=== PATIENT | male | born 1960 | race Two or more races ===

== ENCOUNTER 2019-07-30 19:41 | Emergency (ER) | payer MEDICAID, OTHER ==
[~2019-07-30] VITALS: Ht 170.2 cm; Wt 93.6 kg
[2019-07-30 22:27] LABS: Basophils # (auto) 0.1 uL; Basophils % (auto) 0.7 % (0.0-2.0); Eosinophils # (auto) 0.2 uL; Eosinophils % (auto) 1.9 % (0.0-7.0); Hematocrit 38.7 % (41.0-53.0); Hemoglobin 12.8 g/dL (13.5-17.5); Lymphocytes # (auto) 1.5 uL; Lymphocytes % (auto) 16.4 % (10.0-50.0); Mean Corpuscular Hemoglobin 27.6 pg (28.0-32.0); Mean Corpuscular Hgb Conc. 33.2 g/dL (32.0-36.0); Mean Corpuscular Volume 83.2 fL (80.0-100.0); Monocytes # (auto) 0.9 uL; Monocytes % (auto) 9.3 % (0.0-12.0); Neutrophils # (auto) 6.6 uL; Neutrophils % (auto) 71.7 % (37.0-80.0); Platelet Count (auto) 217 10^3/uL (140-450); Red Blood Cells 4.65 10^6/uL (4.5-5.90); Red Cell Distribution Width 14.1 % (11.8-14.3); White Blood Cell 9.2 10^3/uL (4.4-10.8)
[2019-07-30 22:47] LABS: Alanine Aminotransferase 18 U/L (16-61); Albumin 3.7 g/dL (3.4-5.0); Anion Gap 10 (5-15); Aspartate Aminotransferase 13 U/L (15-37); BUN/Creatinine Ratio 18.4; Blood Urea Nitrogen 16 mg/dL (7-18); Calcium 8.6 mg/dL (8.5-10.1); Carbon Dioxide 26 mmol/L (21-32); Chloride 102 mmol/L (98-107); GFR African American 117 mL/min; GFR Non-African American 96 mL/min; Glucose 142 mg/dL (74-106); Magnesium 2.2 mg/dL (1.6-2.6); Potassium 3.7 mmol/L (3.5-5.1); Sodium 138 mmol/L (136-145)
[2019-07-30 22:48] LABS: INR 0.98 (0.9-1.15)
[2019-07-30 22:52] LABS: Alkaline Phosphatase 89 U/L (45-117); Bilirubin, Total 0.3 mg/dL (0.2-1.0); Total Protein 8.4 g/dL (6.4-8.2)
[2019-07-30] MEDS ORDERED: cloNIDine HCL 0.1 MG TAB PO ONE (23:15)
[2019-07-31 06:14] VITALS: BP 134/85
== END 2019-07-31 06:02 | disposition home or self-care (01) ==
LOC: ER 19:45
DX: R07.2 Precordial pain (principal); E11.65 Type 2 diabetes mellitus with hyperglycemia; R53.1 Weakness; I10 Essential (primary) hypertension; I25.2 Old myocardial infarction; Z95.1 Presence of aortocoronary bypass graft
CPT/HCPCS: 36415; 71045; 80053; 82962; 83735; 83880; 84484; 85025; 85610; 85730; 93005; 94761

== ENCOUNTER 2020-10-29 15:17 | Emergency (ER) | payer MEDICAID ==
[~2020-10-29] VITALS: Ht 170.2 cm; Wt 99.8 kg
[2020-10-29 17:04] LABS: Basophils # (auto) 0 10 ^3/uL (0-0.2); Eosinophils # (auto) 0.1 10 ^3/uL (0-0.8); Hemoglobin 13.5 g/dL (13.5-17.5); Lymphocytes # (auto) 1.3 10 ^3/uL (0.4-5.4); Mean Corpuscular Hemoglobin 30.4 pg (28.0-32.0); Mean Corpuscular Hgb Conc. 34.6 g/dL (32.0-36.0); Monocytes # (auto) 0.7 10 ^3/uL (0-1.3)
[2020-10-29 17:07] LABS: Basophils % (auto) 0.3 % (0.0-2.0); Eosinophils % (auto) 1.1 % (0.0-7.0); Hematocrit 39.1 % (41.0-53.0); Lymphocytes % (auto) 17.5 % (10.0-50.0); Mean Corpuscular Volume 87.8 fL (80.0-100.0); Monocytes % (auto) 9.1 % (0.0-12.0); Neutrophils # (auto) 5.3 10 ^3/uL (1.6-8.6); Nucleated Red Blood Cells % 0.1 %; Platelet Count (auto) 443 10^3/uL (140-450); Red Blood Cells 4.45 10^6/uL (4.5-5.90); White Blood Cell 7.4 10^3/uL (4.4-10.8)
[2020-10-29 17:09] LABS: INR 1.06 (0.9-1.15); Partial Thromboplastin Time 25.8 sec (23.0-31.2)
[2020-10-29 17:11] LABS: Albumin 3.2 g/dL (3.4-5.0); BUN/Creatinine Ratio 12.8; Calcium 8.6 mg/dL (8.5-10.1); Magnesium 2.2 mg/dL (1.6-2.6); Potassium 3.8 mmol/L (3.5-5.1)
[2020-10-29 17:13] LABS: Bilirubin, Total 0.5 mg/dL (0.2-1.0)
[2020-10-29] MEDS ORDERED: metFORMIN HYDROCHLORIDE 500 MG TAB PO ONE (18:15)
[2020-10-29 21:13] VITALS: BP 161/93
== END 2020-10-30 00:52 | disposition home or self-care (01) ==
LOC: ER 15:19
DX: J15.9 Unspecified bacterial pneumonia (principal); R19.7 Diarrhea, unspecified; E11.9 Type 2 diabetes mellitus without complications; I10 Essential (primary) hypertension; Z20.828 Contact with and (suspected) exposure to other viral communicable diseases
CPT/HCPCS: 36415; 71046; 74018; 80053; 83605; 83690; 83735; 85025; 85610; 85730; 87426; 99284; C9803; U0003

== ENCOUNTER 2021-04-10 12:06 | Emergency (ER) | payer MEDICAID ==
[~2021-04-10] VITALS: Ht 170.2 cm; Wt 102.1 kg
[2021-04-10 12:07] VITALS: BP 151/91
[2021-04-10] MEDS ORDERED: MET25T PO (12:38)
[2021-04-10] MEDS ORDERED: PANT40T PO (12:38)
[2021-04-10] MEDS ORDERED: ATOR20TA50 PO (12:38)
== END 2021-04-10 13:05 | disposition home or self-care (01) ==
LOC: ER 12:06
DX: K21.9 Gastro-esophageal reflux disease without esophagitis (principal); I10 Essential (primary) hypertension; E11.9 Type 2 diabetes mellitus without complications; I25.2 Old myocardial infarction; Z76.0 Encounter for issue of repeat prescription; Z79.899 Other long term (current) drug therapy

== ENCOUNTER 2021-07-06 11:55 | Emergency (ER) | payer MEDICAID ==
[~2021-07-06] VITALS: Ht 170.2 cm; Wt 92.5 kg
[~2021-07-06 11:55] MED LIST: ATOR20TA50 PO; MET25T PO; PANT40T PO
[2021-07-06 14:35] VITALS: BP 109/48
== END 2021-07-06 14:42 | disposition home or self-care (01) ==
LOC: ER 11:55
DX: J20.9 Acute bronchitis, unspecified (principal); I10 Essential (primary) hypertension; E11.9 Type 2 diabetes mellitus without complications; K21.9 Gastro-esophageal reflux disease without esophagitis
CPT/HCPCS: 71046

== ENCOUNTER 2022-02-10 19:39 | Inpatient (IN) | payer MEDICARE, MEDICAID ==
[~2022-02-10] VITALS: Ht 170.2 cm; Wt 95.3 kg
[2022-02-10 22:15] LABS: Basophils # (auto) 0 10 ^3/uL (0-0.2); Basophils % (auto) 0.4 % (0.0-2.0); Eosinophils # (auto) 0.1 10 ^3/uL (0-0.8); Eosinophils % (auto) 1.3 % (0.0-7.0); Hematocrit 40.6 % (41.0-53.0); Lymphocytes # (auto) 1.6 10 ^3/uL (0.4-5.4); Lymphocytes % (auto) 25.5 % (10.0-50.0); Mean Corpuscular Hemoglobin 29.4 pg (28.0-32.0); Mean Corpuscular Hgb Conc. 34.4 g/dL (32.0-36.0); Mean Corpuscular Volume 85.6 fL (80.0-100.0); Monocytes # (auto) 0.6 10 ^3/uL (0-1.3); Monocytes % (auto) 8.8 % (0.0-12.0); Neutrophils # (auto) 4.1 10 ^3/uL (1.6-8.6); Nucleated Red Blood Cells % 0.1 %; Red Blood Cells 4.74 10^6/uL (4.5-5.90); Red Cell Distribution Width 14.2 % (11.8-14.3); White Blood Cell 6.3 10^3/uL (4.4-10.8)
[2022-02-10 22:23] LABS: INR 0.97 (0.9-1.15); Partial Thromboplastin Time 24.5 sec (23.6-33.0)
[2022-02-10 22:26] LABS: Albumin 3.6 g/dL (3.4-5.0); BUN/Creatinine Ratio 12.5; Calcium 8.6 mg/dL (8.5-10.1); Potassium 4.2 mmol/L (3.5-5.1)
[2022-02-10 22:29] LABS: Bilirubin, Total 0.4 mg/dL (0.2-1.0); Total Protein 7.5 g/dL (6.4-8.2)
[2022-02-10] MEDS ORDERED: InsuLIN REG 1unit/0.01ml Soln (100units/ml) SC ONE (23:15)
[2022-02-11] MEDS ORDERED: NIFEdipine ER 30 MG TAB PO ONE (01:30)
[2022-02-11] MEDS ORDERED: DOCUSATE SOD 100 MG CAP PO PRN (01:30)
[2022-02-11] MEDS ORDERED: InsuLIN REG 1unit/0.01ml Soln (100units/ml) IV ONE (01:45)
[2022-02-11] MEDS ORDERED: LABETALOL HCL 5 MG/ML 4ML SYRINGE IV ONE (02:00)
[2022-02-11] MEDS ORDERED: DEXTROSE (50%) 50ML SYRG IV PRN (02:00)
[2022-02-11] MEDS: LACTATED RINGER'S 1,000 ML IV SCH ×2 (02:12→14:35)
[2022-02-11 02:17] LABS: Alcohol, Urine < 3.0 mg/dL (0-10); Amphetamine Screen, Urine NEGATIVE (NEGATIVE); Barbiturate Scree,Urine NEGATIVE (NEGATIVE); Benzodiazephine Screen, Urine NEGATIVE (NEGATIVE); Cannabinoid Screen, Urine NEGATIVE (NEGATIVE); Cocaine Screen, Urine NEGATIVE (NEGATIVE); Opiate Scree,Urine NEGATIVE (NEGATIVE); Phencyclidine Screen, Urine NEGATIVE (NEGATIVE)
[2022-02-11 02:27] LABS: Urine Bacteria NONE SEEN /hpf (None Seen); Urine Blood Negative /uL (Negative); Urine Specific Gravity 1.031 (1.001-1.035); Urine WBC 3 /hpf (0 - 3)
[2022-02-11] MEDS: InsuLIN REG 1unit/0.01ml Soln (100units/ml) SC SCH ×5 (04:28→20:44)
[2022-02-11] MEDS: ACCU-CHEK COMFORT CURVE STRIP VI SCH ×5 (04:29→20:35)
[2022-02-11] MEDS: SODIUM CHLOR 0.9% PF (SALINE LOCK) 10ML VIAL/SYR IV SCH ×3 (06:00→21:29)
[2022-02-11] MEDS ORDERED: NOREPINEPHRINE 8 MG/250ML KIT 250 ML IV ONE (08:56)
[2022-02-11 09:22] VITALS: BP 164/101
[2022-02-11] MEDS: PANTOPRAZOLE 40 MG TAB PO SCH (09:44)
[2022-02-11] MEDS ORDERED: METOPROLOL TARTRATE 25 MG TAB PO SCH (10:00)
[2022-02-11 13:00] VITALS: BP 168/100
[2022-02-11] MEDS ORDERED: ASPI325T4 PO (14:19)
[2022-02-11] MEDS ORDERED: POTA10TA51 PO (14:19)
[2022-02-11] MEDS ORDERED: FERR-20 PO (14:19)
[2022-02-11] MEDS ORDERED: CARV25TA55 PO (14:19)
[2022-02-11] MEDS ORDERED: METF-370 PO (14:19)
[2022-02-11] MEDS ORDERED: hydrALAZINE HCL 10 MG TAB PO ONE (16:00)
[2022-02-11] MEDS ORDERED: ASPirin 81 mg TAB PO ONE (16:00)
[2022-02-11] MEDS ORDERED: LISINOPRIL 20 MG TAB PO ONE (16:00)
[2022-02-11] MEDS: ATORVASTATIN 20 MG TAB PO SCH (21:30)
[2022-02-11] MEDS: hydrALAZINE HCL 25 MG TAB PO SCH (21:30)
[2022-02-11] MEDS: INSULIN LANTUS (GLARGINE) 1 /0.01ml (100units/ml) SC SCH (21:32)
[2022-02-11 22:00] VITALS: BP 137/86
[2022-02-12] MEDS: ACCU-CHEK COMFORT CURVE STRIP VI SCH ×6 (00:14→22:37)
[2022-02-12] MEDS: InsuLIN REG 1unit/0.01ml Soln (100units/ml) SC SCH ×6 (00:15→22:31)
[2022-02-12 05:00] VITALS: BP 123/75
[2022-02-12] MEDS: SODIUM CHLOR 0.9% PF (SALINE LOCK) 10ML VIAL/SYR IV SCH ×3 (05:28→22:37)
[2022-02-12] MEDS: INSULIN LANTUS (GLARGINE) 1 /0.01ml (100units/ml) SC SCH ×2 (06:14→22:47)
[2022-02-12 07:19] LABS: Potassium 3.5 mmol/L (3.5-5.1)
[2022-02-12 07:25] LABS: BUN/Creatinine Ratio 18.3; Calcium 8.4 mg/dL (8.5-10.1); Phosphorus 4.5 mg/dL (2.5-4.90)
[2022-02-12 07:31] LABS: Magnesium 2.1 mg/dL (1.6-2.6)
[2022-02-12 07:34] LABS: Folate (Folic Acid) 17.74 ng/mL (5.38-24)
[2022-02-12 08:27] VITALS: BP 122/69
[2022-02-12 08:30] VITALS: BP 122/69
[2022-02-12] MEDS ORDERED: CYANOCOBALAMIN (B-12) 1000 MCG/1 ML VIAL IM ONE (09:30)
[2022-02-12] MEDS ORDERED: ERGOCALCIFEROL 50,000 UNIT(1.25MG) CAP PO SCH (09:30)
[2022-02-12] MEDS: ASPirin 81 mg TAB PO SCH (10:48)
[2022-02-12] MEDS: hydrALAZINE HCL 25 MG TAB PO SCH ×2 (10:49→22:38)
[2022-02-12] MEDS: PANTOPRAZOLE 40 MG TAB PO SCH (10:49)
[2022-02-12] MEDS: LISINOPRIL 20 MG TAB PO SCH (10:50)
[2022-02-12] MEDS: METOPROLOL SUCCINATE XL 50 MG TAB PO SCH (10:50)
[2022-02-12 13:00] VITALS: BP 154/96
[2022-02-12] MEDS ORDERED: POTASSIUM CHL 20 Meq TABLET PO ONE (15:00)
[2022-02-12 17:00] VITALS: BP 145/83
[2022-02-12 22:00] VITALS: BP 154/102
[2022-02-12] MEDS: ATORVASTATIN 20 MG TAB PO SCH (22:38)
[2022-02-13] MEDS: ACCU-CHEK COMFORT CURVE STRIP VI SCH ×5 (00:21→16:00)
[2022-02-13] MEDS: InsuLIN REG 1unit/0.01ml Soln (100units/ml) SC SCH ×5 (04:00→17:00)
[2022-02-13 05:00] VITALS: BP_SYST 118; BP_SYST 126; BP_DIAS 71; BP_DIAS 91
[2022-02-13] MEDS: INSULIN LANTUS (GLARGINE) 1 /0.01ml (100units/ml) SC SCH (06:43)
[2022-02-13] MEDS: SODIUM CHLOR 0.9% PF (SALINE LOCK) 10ML VIAL/SYR IV SCH ×2 (06:43→14:00)
[2022-02-13 09:00] VITALS: BP 131/81
[2022-02-13] MEDS: ASPirin 81 mg TAB PO SCH (09:00)
[2022-02-13] MEDS: LISINOPRIL 20 MG TAB PO SCH (09:01)
[2022-02-13] MEDS: METOPROLOL SUCCINATE XL 50 MG TAB PO SCH (09:01)
[2022-02-13] MEDS: PANTOPRAZOLE 40 MG TAB PO SCH (09:01)
[2022-02-13] MEDS: hydrALAZINE HCL 25 MG TAB PO SCH (09:01)
[2022-02-13 13:00] VITALS: BP 135/78
[2022-02-13] MEDS ORDERED: LISI20TA28 PO (15:11)
[2022-02-13] MEDS ORDERED: ERGO1CAP23 PO (15:11)
[2022-02-13] MEDS ORDERED: METF-929 PO (15:11)
[2022-02-13] MEDS ORDERED: ATOR20TA50 PO (15:11)
[2022-02-13] MEDS ORDERED: HYDR25TA87 PO (15:11)
[2022-02-13] MEDS ORDERED: METO-6 PO (15:11)
[2022-02-13] MEDS ORDERED: GLIP10TA9 PO (15:11)
[2022-02-13] MEDS ORDERED: EMPA1TAB3 PO (15:11)
[2022-02-13 17:00] VITALS: BP 147/88
[2022-02-13 17:58] VITALS: BP 131/81
== END 2022-02-13 19:22 | disposition home or self-care (01) | DRG 73 ==
LOC: EDBD 19:39 → ER 19:39 → TELE 02-11 01:25 → TELE-WESTW 02-11 08:43 → WEST WING 02-12 14:54
PROVIDERS: ADMIT Internal Medicine; ATTEND Internal Medicine
DX: G90.8 Other disorders of autonomic nervous system (principal); G93.41 Metabolic encephalopathy; I50.22 Chronic systolic (congestive) heart failure; E11.65 Type 2 diabetes mellitus with hyperglycemia; K21.9 Gastro-esophageal reflux disease without esophagitis; I25.10 Atherosclerotic heart disease of native coronary artery without angina pectoris; E55.9 Vitamin D deficiency, unspecified; I11.0 Hypertensive heart disease with heart failure
CPT/HCPCS: 36415; 70450; 71045; 74176; 80048; 80053; 80061; 80307; 81001; 82010; 82306; 82378; 82607; 82746; 82962; 83036; 83735; 83880; 83930; 84100; 84484; 85025; 85610; 85730; 93005; 93306; 93886; 96372; 96374; 96375; G0378; J1815; J3490

== ENCOUNTER 2022-05-14 08:09 | Day surgery (SDC) | payer MEDICARE, MEDICAID ==
[2022-05-13 10:05] LABS: Basophils # (auto) 0 10 ^3/uL (0-0.2); Basophils % (auto) 0.3 % (0.0-2.0); Eosinophils # (auto) 0.2 10 ^3/uL (0-0.8); Eosinophils % (auto) 1.8 % (0.0-7.0); Hematocrit 44.3 % (41.0-53.0); Hemoglobin 14.3 g/dL (13.5-17.5); Lymphocytes # (auto) 1.5 10 ^3/uL (0.4-5.4); Lymphocytes % (auto) 16.7 % (10.0-50.0); Mean Corpuscular Hemoglobin 27.7 pg (28.0-32.0); Mean Corpuscular Hgb Conc. 32.4 g/dL (32.0-36.0); Mean Corpuscular Volume 85.7 fL (80.0-100.0); Monocytes # (auto) 0.7 10 ^3/uL (0-1.3); Monocytes % (auto) 7.4 % (0.0-12.0); Neutrophils # (auto) 6.7 10 ^3/uL (1.6-8.6); Neutrophils % (auto) 73.8 % (37.0-80.0); Nucleated Red Blood Cells % 0.1 %; Red Blood Cells 5.18 10^6/uL (4.5-5.90); Red Cell Distribution Width 14.6 % (11.8-14.3); White Blood Cell 9.1 10^3/uL (4.4-10.8)
[2022-05-13 10:18] LABS: Urine Bacteria FEW /hpf (None Seen); Urine Blood Negative /uL (Negative); Urine Mucus FEW (None Seen); Urine Specific Gravity 1.039 (1.001-1.035); Urine WBC 2 /hpf (0 - 3)
[2022-05-13 10:20] LABS: INR 0.98 (0.9-1.15); Partial Thromboplastin Time 27.9 sec (24.6-33.4)
[2022-05-13 10:21] LABS: Potassium 4.2 mmol/L (3.5-5.1)
[2022-05-13 10:34] LABS: Albumin 3.7 g/dL (3.4-5.0); BUN/Creatinine Ratio 21.8; Bilirubin, Total 0.4 mg/dL (0.2-1.0); Calcium 8.9 mg/dL (8.5-10.1); Total Protein 8.8 g/dL (6.4-8.2)
[~2022-05-14] VITALS: Ht 170.2 cm; Wt 95.7 kg
[~2022-05-14 08:09] MED LIST changes: -ATOR20TA50 PO; +EMPA1TAB3 PO; +GLIP10TA9 PO; +HYDR25TA87 PO; -MET25T PO; +METF-929 PO; +METO-6 PO; -PANT40T PO; +POTA10TA51 PO
[2022-05-14] MEDS ORDERED: ceFAZolin 1GM/50ML 100 ML IV ONE (09:03)
[2022-05-14] MEDS ORDERED: ceFAZolin 1GM VL ONE (10:13)
[2022-05-14] MEDS ORDERED: ROPIVACAINE 0.5% (5MG/ML) 20ML AMPULE IJ ONE (10:13)
[2022-05-14] MEDS ORDERED: MIDAZOLAM HCL 2MG/2ML 2ml VIAL (1mg/ml) ONE (10:28)
[2022-05-14] MEDS ORDERED: fentaNYL CITRATE 100 MCG/2 ML VL ONE (10:28)
[2022-05-14] MEDS ORDERED: ONDANSETRON HCL 4 MG/2 ML VIAL ONE (10:32)
[2022-05-14] MEDS ORDERED: LIDOCAINE 2% (LOCAL ANESTH.) PF 5ml SDV ONE (10:32)
[2022-05-14] MEDS ORDERED: PROPOFOL 10 MG/ML 20 ML IV ONE (11:39)
[2022-05-14] MEDS ORDERED: ONDANSETRON HCL 4 MG/2 ML VIAL IV PRN (11:45)
[2022-05-14] MEDS ORDERED: HYDROmorphone HCL 2 MG/ML VL/or syr IV PRN ×2 (11:45)
[2022-05-14 12:30] VITALS: BP 167/97
== END 2022-05-14 12:50 | disposition home or self-care (01) ==
LOC: SUR 08:09
PROVIDERS: ATTEND Podiatrist Foot & Ankle Surgery
DX: M20.42 Other hammer toe(s) (acquired), left foot (principal); M20.41 Other hammer toe(s) (acquired), right foot; I10 Essential (primary) hypertension; E11.9 Type 2 diabetes mellitus without complications; I25.10 Atherosclerotic heart disease of native coronary artery without angina pectoris; I25.2 Old myocardial infarction; Z20.822 Contact with and (suspected) exposure to COVID-19; Z95.5 Presence of coronary angioplasty implant and graft
CPT/HCPCS: 28285; 36415; 80053; 81001; 82962; 85025; 85610; 85730; J0690; J2001; J2250; J2405; J2704; J2795; J3010; U0003